=== PATIENT | male | born 1980 | race Caucasian/White ===

== ENCOUNTER 2017-04-06 05:22 | Day surgery (SDC) | payer OTHER, BC ==
[2017-03-25 13:17] VITALS: BMI 25.0
--- NOTE | 2017-03-25 14:22 | DIAGNOSTIC IMAGING REPORT ---
CHEST PREADMISSION(PA/LAT) CLINICAL HISTORY: Preoperative evaluation. COMPARISON STUDY: No previous studies for comparison. FINDINGS: Incidental note is made of a healed fracture of the midshaft of the right clavicle. Lung volumes are normal. No pneumothorax or pleural effusion is present. There is suspected biapical scarring. Pulmonary vascularity is normal. Cardiomediastinal silhouette is normal. IMPRESSION: No acute cardiopulmonary findings. Electronically signed by: Roel Moody M.D. 03/25/2017 2:21 PM Dictated Date/Time: 03/25/2017 2:20 PM
[2017-03-25 14:45] LABS: BASO % 0.8 %; BASO ABS # 0.08 K/uL (0-0.2); COMPLETE YES; HEMATOCRIT 42.4 % (42-52); IG% 0.1 %; LYMPH % 30.1 %; MEAN CORPUSCULAR HEMOGLOBIN 32.8 pg (25-34); MEAN CORPUSCULAR HGB CONC 35.6 g/dl (32-36); MEAN PLATELET VOLUME 10.3 fL (7.4-10.4); MONO % 6.9 %; NEUT % 58.1 %; PLATELET COUNT 277 K/uL (130-400); RED BLOOD COUNT 4.61 M/uL (4.7-6.1)
[2017-03-25 14:54] LABS: BUN/CREATININE RATIO 13.2 (10-20); CALCIUM 9.3 mg/dl (8.5-10.1); CREATININE 0.98 mg/dl (0.60-1.40); POTASSIUM 4.2 mmol/L (3.5-5.1)
[2017-03-25 15:06] LABS: URINE APPEARANCE CLEAR (CLEAR); URINE BILIRUBIN NEG (NEG); URINE COLOR YELLOW; URINE NITRITE NEG (NEG); URINE PH 7.5 (4.5-7.5); URINE SPECIFIC GRAVITY 1.021 (1.000-1.030); UROBILINOGEN NEG (NEG)
[2017-03-25 15:16] LABS: MANUAL MICROSCOPIC REQUIRED? NO; REVIEW REQ? NO
[~2017-04-06] VITALS: Ht 185.4 cm; Wt 88.9 kg
[2017-04-06 05:51] VITALS: BP 154/90; PULSE 95; TEMP 36.6; O2SAT 99; Ht 185.4 cm; Wt 88.9 kg
[2017-04-06] MEDS ORDERED: LACTATED RINGER'S 1000ML 1,000 ML IV SCH (06:00)
[2017-04-06] MEDS ORDERED: CEFAZOLIN 2000 MG/60 ML D5W IV SCH (06:00)
[2017-04-06] MEDS ORDERED: LIDOCAINE HCL 2% 2 ML VIAL (20MG/ML) ONE (06:46)
[2017-04-06] MEDS ORDERED: MIDAZOLAM HCL 1 MG/ML 2ML VIAL ONE (06:46)
[2017-04-06] MEDS ORDERED: FENTANYL CITRATE INJ 50 MCG/1 ML 2 ML VIAL ONE ×3 (06:47→08:34)
[2017-04-06] MEDS ORDERED: ONDANSETRON INJ 2 MG/ML 2 ML VIAL ONE ×2 (06:47→07:34)
[2017-04-06] MEDS ORDERED: PROPOFOL IV EMULSION 10 MG/ML 20 ML VIAL IV ONE ×2 (06:47→07:42)
[2017-04-06] MEDS ORDERED: CONRAY 30% 150ML BOTTLE ONE (07:01)
--- NOTE | 2017-04-06 07:11 | History & Physical Bridge Note ---
H&P Re-Evaluation Bridge Note: I have examined the patient, reviewed the History & Physical and in the interval since the performance of the History & Physical I have noted the following changes of clinical significance: No changes noted
[2017-04-06] MEDS ORDERED: DEXAMETHASONE SOD INJ 4 MG/ML VIAL ONE (07:34)
--- NOTE | 2017-04-06 08:08 | DIAGNOSTIC IMAGING REPORT ---
Radiology KUB CLINICAL HISTORY: 36 years-old Male presenting with RT LASER/LITHOTRIPSY/STENT. TECHNIQUE: 2 fluoroscopic spot image(s) obtained as part of an intraoperative procedure. COMPARISON: CT from 02/19/2017. FINDINGS/IMPRESSION: There has been interval placement of a right ureteral stent. Please see surgical report for further details. Fluoroscopy dosage (mGy): Not available. Fluoroscopy time: 1 minute 2 seconds. Number of fluoroscopic spot images: 2. Electronically signed by: Dinh Mariee M.D. 04/06/2017 8:07 AM Dictated Date/Time: 04/06/2017 8:06 AM
--- NOTE | 2017-04-06 08:15 | [facility] Operative Report ---
Operative Report Operative Date Apr 06, 2017. Pre-Operative Diagnosis Right ureteral stone Post-Operative Diagnosis Right ureteral stone; right kidney stone Procedure(s) Performed cystoscopy; right Ureteroscopy; laser lithotripsy; retrograde pyelogram; and placement of right ureteral stent Surgeon Dr. Ochoa [employer] Strategist Surgeon(s) none Estimated Blood Loss 0mL Findings Ureter clear of stone. Approx 5 mm stone in right mid pole. Specimens none per surgeon Drains 6x26 Right Anesthesia General Complication(s) None Disposition Recovery Room / PACU Indications Long conversation of risks and benefits. Patient agreeable and consented Description of Procedure Patient was consented and brought back to the operating room. Patient was placed under anesthesia and into the dorsal lithotomy position. A time out was completed. A 30degree Cystoscope was placed into the bladder and the entire bladder was examined. The UO's were identified. The right was cannulized with a catheter and a retrograde pyelogram was completed. A wire was then placed, followed by a second safety wire. A flexible ureteroscope was then placed over one of the wires and the entire ureter was examined. No evidence of stone throughtout ureter. The scope then explored the entire renal pelvis. A stone was appreciated in the mid pole and was pulverized to dust and small fragments with a laser. The entire pelvis examined, the scope was slowly removed once again visualizing the entire ureter. The saftey wire remained in place. With the wire in place, a 6 x 26 Double J stent was placed after back loading the wire through the cystoscope. It was confirmed with fluoroscopy. With the stent in place, the bladder was emptied. The scope was removed. The patient was cleaned, aroused from anesthesia, and transferred to the pacu in stable condition having tolerated the procedure well with no complications. I was present and participated in all aspects of the procedure. The patient will be monitored in the PACU until transferred. I attest to the content of the Intraoperative Record and any orders documented therein. Any exceptions are noted below.
[2017-04-06] MEDS ORDERED: PHEN-775 PO (08:16)
[2017-04-06] MEDS ORDERED: OXYC7.5T65 PO (08:16)
[2017-04-06] MEDS ORDERED: CEPH500C2 PO (08:16)
--- NOTE | 2017-04-06 08:18 | Discharge Instructions ---
Discharge Instructions Date of Service Apr 06, 2017. Admission Reason for Admission: Stones Discharge Discharge Diagnosis / Problem: Stone Discharge Goals Goal(s): Decrease discomfort, Improve function Activity Recommendations Activity Limitations: resume your previous activity Shower/Bathe: no limitations . Instructions / Follow-Up Instructions / Follow-Up Monitor for pelvic pain and fevers. May have discomfort and spasms. Call if fever. May have blood in urine. Current Hospital Diet Hospital Diet(s): Regular Diet Discharge Diet Recommended Diet: Regular Diet Procedures Procedures Performed: cystoscopy; right Ureteroscopy; laser lithotripsy; retrograde pyelogram; and placement of right ureteral stent Pending Studies Studies pending at discharge: no Medical Emergencies . Who to Call and When: Medical Emergencies: If at any time you feel your situation is an emergency, please call 911 immediately. . Non-Emergent Contact Non-Emergency issues call your: Primary Care Provider, Urologist Call Non-Emergent contact if: you have a fever, temperature is above 101, temperature is above 101.5, your pain is not controlled, your pain is worsening . . "Provider Documentation" section prepared by Wayne Ochoa,. . VTE Core Measure Inpt VTE Proph given/why not?: Gerri Zhao, SCD's
[2017-04-06] MEDS ORDERED: EpHEDrine SULFATE INJ 50 MG/ML AMP IV PRN (08:30)
[2017-04-06] MEDS ORDERED: ATROPINE SULFATE 0.1 MG/ML 5ML SYR IV PRN (08:30)
[2017-04-06] MEDS ORDERED: HYDROmorphone INJ 1 MG/ML SYR IV PRN (08:30)
[2017-04-06] MEDS ORDERED: PROMETHAZINE HCL INJ 12.5 MG in SODIUM CHLORIDE 0.9% 50ML 50 ML IV PRN (08:30)
[2017-04-06] MEDS ORDERED: ONDANSETRON INJ 2 MG/ML 2 ML VIAL IV PRN (08:30)
[2017-04-06] MEDS ORDERED: FENTANYL CITRATE INJ 50 MCG/1 ML 2 ML VIAL IV PRN (08:30)
--- NOTE | 2017-04-06 09:02 | Anesthesiology Progress Note ---
Anesthesia Post Op Note Date & Time Apr 06, 2017 at 09:01 Vital Signs Pain Intensity: 3 Vital Signs Past 12 Hours Date Time Temp Pulse Resp B/P (MAP) Pulse Ox O2 Delivery O2 Flow Rate FiO2 04/06/17 08:55 77 16 133/78 96 Room Air 04/06/17 08:45 78 16 135/88 95 Room Air 04/06/17 08:35 75 16 139/92 95 Room Air 04/06/17 08:25 83 16 158/93 97 Oxymask 10 04/06/17 08:15 87 16 140/88 99 Oxymask 10 04/06/17 08:09 36.6 92 16 161/116 98 Oxymask 10 04/06/17 05:51 36.6 95 18 154/90 (111) 99 Room Air Notes Mental Status: alert / awake / arousable, participated in evaluation Pt Amnestic to Procedure: Yes Nausea / Vomiting: adequately controlled Pain: adequately controlled Airway Patency, RR, SpO2: stable & adequate BP & HR: stable & adequate Hydration State: stable & adequate Anesthetic Complications: no major complications apparent
[2017-04-06 09:15] VITALS: BP 144/78; PULSE 81; TEMP 36.5; O2SAT 96
[2017-04-06 09:45] VITALS: BP 155/80; PULSE 85; O2SAT 97
[2017-04-06] MEDS ORDERED: NURSING VERBAL MED ORDER ONE (10:00)
[2017-04-06] MEDS ORDERED: MoRPHine SULFATE 2 MG/ML CARP ONE (10:02)
[2017-04-06 10:15] VITALS: BP 148/85; PULSE 78; O2SAT 97
[2017-04-06] MEDS ORDERED: KETOROLAC TROMETHAMINE 30 MG/ML VIAL ONE (10:37)
[2017-04-06 10:45] VITALS: BP 148/85; PULSE 88; O2SAT 96
[2017-04-06] MEDS ORDERED: NURSING DECISION MEDICATION ORDER SCH (10:45)
== END 2017-04-06 11:05 | disposition home or self-care (01) ==
LOC: C.ACU 05:22
PROVIDERS: ATTEND Urology
DX: N20.2 Calculus of kidney with calculus of ureter (principal); F17.200 Nicotine dependence, unspecified, uncomplicated; Z79.899 Other long term (current) drug therapy

== ENCOUNTER → 2017-04-13 | Outpatient (CLI) | payer OTHER, BC ==
[~2017-04-13] MED LIST: CEPH500C2 PO; OXYC7.5T65 PO; PHEN-775 PO
--- NOTE | 2017-04-13 17:14 | DIAGNOSTIC IMAGING REPORT ---
KUB CLINICAL HISTORY: 36 years-old Male presenting with N20.0 Nephrolithiasis. TECHNIQUE: Single supine view of the abdomen was obtained. COMPARISON: CT from 02/19/2017. FINDINGS: Interval placement of a right ureteral stent is in place. Renal calculus at the lower pole the right kidney and a punctate calculus at the upper pole the left kidney noted. No calcification along the course of the right ureteral stent. Multiple pelvic phleboliths noted. Suture material noted in the right lower quadrant. Moderate right-sided stool burden partially obscures the right kidney. Osseous structures normal. IMPRESSION: 1. Interval placement of a right ureteral stent for the previously noted obstructing proximal to mid right ureteral calculus. No current evidence of ureteral calculus. 2. Bilateral nephrolithiasis. Electronically signed by: Dinh Mariee M.D. 04/13/2017 5:13 PM Dictated Date/Time: 04/13/2017 5:10 PM
== END | disposition home or self-care (01) ==
LOC: C.RAD 16:20
PROVIDERS: ATTEND Urology
DX: N20.0 Calculus of kidney (principal)

== ENCOUNTER 2017-05-06 07:39 | Emergency (ER) | payer BC, OTHER ==
[~2017-05-06] VITALS: Ht 185.4 cm; Wt 86.7 kg
[~2017-05-06 07:39] MED LIST changes: -PHEN-775 PO
[2017-05-06 07:41] VITALS: TEMP 36.3; Ht 185.4 cm; Wt 86.7 kg
[2017-05-06] MEDS ORDERED: ONDANSETRON INJ 2 MG/ML 2 ML VIAL IV STA (07:53)
[2017-05-06] MEDS ORDERED: SODIUM CHLORIDE 0.9% 1000ML 1,000 ML IV STA (07:53)
[2017-05-06] MEDS ORDERED: MoRPHine SULFATE 10 MG/ML CARP/VIAL IV STA (07:53)
[2017-05-06] MEDS ORDERED: KETOROLAC TROMETHAMINE 30 MG/ML VIAL IV STA (07:53)
[2017-05-06] MEDS ORDERED: PHEN-939 PO (08:01)
[2017-05-06 08:06] LABS: BASO % 0.8 %; BASO ABS # 0.07 K/uL (0-0.2); COMPLETE YES; EOS % 2.8 %; HEMATOCRIT 41.6 % (42-52); IG% 0.2 %; LYMPH % 27.5 %; LYMPH ABS # 2.49 K/uL (1.2-3.4); MEAN CORPUSCULAR HEMOGLOBIN 31.8 pg (25-34); MEAN CORPUSCULAR HGB CONC 35.3 g/dl (32-36); MEAN PLATELET VOLUME 9.8 fL (7.4-10.4); MONO % 6.5 %; NEUT % 62.2 %; PLATELET COUNT 305 K/uL (130-400); RED BLOOD COUNT 4.62 M/uL (4.7-6.1); WHITE BLOOD COUNT 9.04 K/uL (4.8-10.8)
[2017-05-06 08:22] LABS: URINE APPEARANCE CLEAR (CLEAR); URINE BILIRUBIN NEG (NEG); URINE COLOR DK YELLOW; URINE NITRITE POS (NEG); URINE SPECIFIC GRAVITY 1.018 (1.000-1.030); UROBILINOGEN NEG (NEG); ZZUR CULT IF INDIC CLEAN CATCH NO
[2017-05-06 08:24] LABS: MANUAL MICROSCOPIC REQUIRED? NO; REVIEW REQ? NO
[2017-05-06 08:26] LABS: BUN/CREATININE RATIO 13.1 (10-20); CALCIUM 9.2 mg/dl (8.5-10.1); CREATININE 1.07 mg/dl (0.60-1.40); POTASSIUM 3.9 mmol/L (3.5-5.1)
[2017-05-06] MEDS ORDERED: CIPROFLOXACIN 500 MG TAB PO STA (08:36)
[2017-05-06] MEDS ORDERED: PHEN-876 PO (08:43)
[2017-05-06] MEDS ORDERED: CIPR-255 PO (08:43)
--- NOTE | 2017-05-06 08:44 | EMERGENCY ROOM VISIT NOTE ---
History First contact with patient: 07:45 Chief Complaint: URINARY SYMPTOMS Stated Complaint: EXTREME KIDNEY PAIN Nursing Triage Summary: pt reports has hx of kidney stone had stent placed then when removed dx with uti placed on antibiotics . pt currently on pyridum. reports pain started this am History of Present Illness The patient is a 36 year old male who presents to the Emergency Room with complaints of left flank pain this morning. The patient states over the past few days he's had a little bit of urination irritation. He started taking Pyridium 2 days ago. The patient denies any fever, chest pain, shortness of breath, back pain, hematuria. The patient states that he had a stent placement in the right ureter a month ago to pass a calculus. After they removed the stent after he passed the stone he developed a UTI. He was placed on Cipro for 5 days. He finished the Cipro last week. He was instructed if he gets any kidney pain he is to come to the emergency room. On the prior imaging studies they did not visualize a stone in the left kidney. Review of Systems 10 system review was performed and was negative unless stated otherwise history of present illness. Social History Smoking Status: Current Every Day Smoker Current/Historical Medications Scheduled Phenazopyridine Hcl (Pyridium), Unknown Dose PO TID Physical Exam Vital Signs Date Time Temp Pulse Resp B/P (MAP) Pulse Ox O2 Delivery O2 Flow Rate FiO2 05/06/17 07:41 36.3 90 18 159/96 99 Room Air Physical Exam GENERAL: 36-year-old male appears in no acute distress. MENTAL Status: Alert and oriented 3. MOUTH: Mucosa is moist NECK: Supple, no lymphadenopathy noted. No carotid bruits noted. LUNGS: Clear auscultation without wheezes rales or rhonchi. CARDIAC: Regular rate and rhythm without murmur. Pulses is full and equal throughout. BACK: No CVA tenderness noted. ABDOMEN: Positive bowel sounds all 4 quadrants. Soft, nontender to palpation without organomegaly or masses. EXTREMITIES: No cyanosis or edema noted. Medical Decision & Procedures Laboratory Results 05/06/17 07:55 Red Blood Count 4.62, Mean Corpuscular Volume 90.0, Mean Corpuscular Hemoglobin 31.8, Mean Corpuscular Hemoglobin Concent 35.3, Mean Platelet Volume 9.8, Neutrophils (%) (Auto) 62.2, Lymphocytes (%) (Auto) 27.5, Monocytes (%) (Auto) 6.5, Eosinophils (%) (Auto) 2.8, Basophils (%) (Auto) 0.8, Neutrophils # (Auto) 5.62, Lymphocytes # (Auto) 2.49, Monocytes # (Auto) 0.59, Eosinophils # (Auto) 0.25, Basophils # (Auto) 0.07 05/06/17 07:55 Test 05/06/17 07:50 05/06/17 07:55 Urine Color DK YELLOW Urine Appearance CLEAR (CLEAR) Urine pH 8.0 (4.5-7.5) Urine Specific [place] 1.018 (1.000-1.030) Urine Protein NEG (NEG) Urine Glucose (UA) NEG (NEG) Urine Ketones NEG (NEG) Urine Occult Blood 2+ (NEG) Urine Nitrite POS (NEG) Urine Bilirubin NEG (NEG) Urine Urobilinogen NEG (NEG) Urine Leukocyte Esterase SMALL (NEG) Urine WBC (Auto) 5-10 /hpf (0-5) Urine RBC (Auto) 10-30 /hpf (0-4) Urine Hyaline Casts (Auto) 1-5 /lpf (0-5) Urine Epithelial Cells (Auto) 5-10 /lpf (0-5) Urine Bacteria (Auto) NEG (NEG) White Blood Count 9.04 K/uL (4.8-10.8) Red Blood Count 4.62 M/uL (4.7-6.1) Hemoglobin 14.7 g/dL (14.0-18.0) Hematocrit 41.6 % (42-52) Mean Corpuscular Volume 90.0 fL (80-100) Mean Corpuscular Hemoglobin 31.8 pg (25-34) Mean Corpuscular Hemoglobin Concent 35.3 g/dl (32-36) Platelet Count 305 K/uL (130-400) Mean Platelet Volume 9.8 fL (7.4-10.4) Neutrophils (%) (Auto) 62.2 % Lymphocytes (%) (Auto) 27.5 % Monocytes (%) (Auto) 6.5 % Eosinophils (%) (Auto) 2.8 % Basophils (%) (Auto) 0.8 % Neutrophils # (Auto) 5.62 K/uL (1.4-6.5) Lymphocytes # (Auto) 2.49 K/uL (1.2-3.4) Monocytes # (Auto) 0.59 K/uL (0.11-0.59) Eosinophils # (Auto) 0.25 K/uL (0-0.5) Basophils # (Auto) 0.07 K/uL (0-0.2) RDW Standard Deviation 39.1 fL (36.4-46.3) RDW Coefficient of Variation 12.0 % (11.5-14.5) Immature Granulocyte % (Auto) 0.2 % Immature Granulocyte # (Auto) 0.02 K/uL (0.00-0.02) Anion Gap 7.0 mmol/L (3-11) Est Creatinine Clear Calc Drug Dose 109.9 ml/min Estimated GFR () 104.4 Estimated GFR (Non- 90.1 BUN/Creatinine Ratio 13.1 (10-20) Calcium Level 9.2 mg/dl (8.5-10.1) Medications Administered Medications (Trade) Dose Ordered Sig/Priyanka Route Start Time Stop Time Status Last Admin Dose Admin Sodium Chloride 1,000 ml @ 999 mls/hr Q1H1M STAT IV 05/06/17 07:53 05/06/17 08:53 05/06/17 08:13 999 MLS/HR Ketorolac Tromethamine (Toradol Inj) 30 mg NOW STAT IV 05/06/17 07:53 05/06/17 07:55 DC 05/06/17 08:14 30 MG ED Course The patient was evaluated. The patient's EMR medication list were reviewed. IV access was obtained. The patient was given 1 L normal saline. The patient was given Toradol 30 mg IV for pain. CBC and differential, renal profile, urinalysis was ordered. Labs were reviewed and were unremarkable. White count was normal. The patient's urine showed positive leukocytes positive nitrates and positive blood. This is consistent with UTI. Urine will be sent for culture. The patient was informed of the findings. He was given Cipro 500 mg while in the emergency room. The patient was discharged home in stable condition. Medical Decision Differential diagnosis include UTI, pyelonephritis, ureteral calculi, renal colic [place] Drug Monitoring Program Search Results: patient reviewed within database Medication Reconcilliation Current Medication List: was personally reviewed by me Blood Pressure Screening Patient's blood pressure: Elevated blood pressure Blood pressure disposition: Elevated BP felt to be situational Impression Primary Impression: Urinary tract infection Departure Information Dispostion Home / Self-Care Condition GOOD Prescriptions Ciprofloxacin Hcl (CIPRO) 500 Mg Tab 500 MG PO BID for 10 Days, #20 TAB Prov: Ernestine Bob PA-C 05/06/17 Phenazopyridine HCl (Pyridium) 200 Mg Tab 200 MG PO TID for 2 Days, #6 TAB Prov: Ernestine Bob PA-C 05/06/17 Referrals No Doctor, Assigned (PCP) Forms HOME CARE DOCUMENTATION FORM, IMPORTANT VISIT INFORMATION Patient Instructions [facility], UTI Additional Instructions Drink a lot of water. Ibuprofen 600 mg every 6 hours with food for pain if needed.. Take Pyridium as directed the remainder of today and tomorrow. This will turn her urine orange. Take Cipro as prescribed. If you develop any severe pains, uncontrolled nausea vomiting, high fevers, return to ER immediately Problem Qualifiers Primary Impression: Urinary tract infection Urinary tract infection type: acute cystitis Hematuria presence: with hematuria Qualified Codes: N30.01 - Acute cystitis with hematuria
[2017-05-06 09:01] VITALS: BP 145/87; PULSE 86; O2SAT 97
== END 2017-05-06 09:04 | disposition home or self-care (01) ==
LOC: C.EDB 07:41 → C.EDA 09:04
DX: N39.0 Urinary tract infection, site not specified (principal); F17.200 Nicotine dependence, unspecified, uncomplicated

== ENCOUNTER → 2017-05-17 | Outpatient (CLI) | payer OTHER ==
[~2017-05-17] MED LIST changes: -CEPH500C2 PO; +CIPR-255 PO; -OXYC7.5T65 PO; +PHEN-939 PO
--- NOTE | 2017-05-17 15:05 | DIAGNOSTIC IMAGING REPORT ---
ULTRASOUND KIDNEYS AND BLADDER CLINICAL HISTORY: Nephrolithiasis. COMPARISON STUDY: Abdominal CT dated 02/19/2017. TECHNIQUE: Real-time, grayscale, and color flow sonography of the kidneys and bladder is performed. Images are reviewed in the transverse and longitudinal planes. FINDINGS: Kidneys: The kidneys are normal in size and echotexture. The right kidney measures 11.5 x 6.4 x 5.6 cm and the left kidney measures 10.7 x 5.7 x 6.0 cm. There is no hydronephrosis. No shadowing renal calculi are identified. There is no sonographic evidence of contour deforming renal mass lesion. No perinephric fluid is identified. Bladder: The bladder is decompressed and not well evaluated. Ureteral jets were not seen. IMPRESSION: 1. The kidneys are normal in size and without hydronephrosis. 2. No renal calculi were identified by ultrasound. The small stones seen by CT were not apparent by ultrasound. 3. The bladder was decompressed and not well assessed. Electronically signed by: Cayetano Crowe M.D. 05/17/2017 3:04 PM Dictated Date/Time: 05/17/2017 3:03 PM
--- NOTE | 2017-05-17 15:35 | DIAGNOSTIC IMAGING REPORT ---
KUB CLINICAL HISTORY: Nephrolithiasis. FINDINGS: An AP supine abdominal radiograph is compared to study dated 04/13/2017 and correlated with abdominal CT dated 02/19/2017. A right ureteral stent has been removed from previous. A 3 mm nonobstructing calculi projects over the lower pole of the right kidney. No calcifications are clearly seen projecting over the left kidney or along the course of the ureters. Small pelvic phleboliths are observed. Suture material is noted in the right lower quadrant. There is a nonobstructed abdominal bowel gas pattern. The bony structures appear intact. IMPRESSION: 1. A right ureteral stent has been removed from previous. 2. A small nonobstructing right renal calculus is noted. 3. No left renal calculi are clearly seen. Electronically signed by: Cayetano Crowe M.D. 05/17/2017 3:34 PM Dictated Date/Time: 05/17/2017 3:33 PM
== END | disposition home or self-care (01) ==
LOC: C.ULTR 14:39
PROVIDERS: ATTEND Urology
DX: N20.0 Calculus of kidney (principal)

== ENCOUNTER → 2017-08-24 | Outpatient (CLI) | payer OTHER ==
--- NOTE | 2017-08-24 11:24 | DIAGNOSTIC IMAGING REPORT ---
(RENAL)RETROPERITON COMP HISTORY: Pain. Nephrocalcinosis. R30.0 [id number] COMPARISON: 05/17/2017 FINDINGS: Right kidney: Maximum dimension 11.1 cm. No evidence for hydronephrosis. Normal corticomedullary differentiation and cortical thickness. Several punctate foci of increased echogenicity Left kidney: Maximum dimension 11.0 cm. No evidence for hydronephrosis. Normal corticomedullary differentiation and cortical thickness. Several punctate foci of increased echogenicity Bladder: No bladder wall thickening. The bilateral ureteral jets were identified. IMPRESSION: 1. Possible bilateral punctate nonobstructing nephrocalcinosis. 2. Study is otherwise negative. 3. No evidence for hydronephrosis. The above report was generated using voice recognition software. It may contain grammatical, syntax or spelling errors. Electronically signed by: Doron Bob M.D. 08/24/2017 11:23 AM Dictated Date/Time: 08/24/2017 11:21 AM
--- NOTE | 2017-08-24 11:25 | DIAGNOSTIC IMAGING REPORT ---
KUB CLINICAL HISTORY: R30.0 [id number] pain. Hematuria. COMPARISON STUDY: 05/17/2017 FINDINGS: Unchanged calcification lower pole right kidney. No new or additional calcifications. Renal and psoas shadows are otherwise are unremarkable. Several unchanged pelvic vascular calcifications. IMPRESSION: Unchanged small lower pole right renal calcification. No new or interval change as compared to the prior study. The above report was generated using voice recognition software. It may contain grammatical, syntax or spelling errors. Electronically signed by: Doron Bob M.D. 08/24/2017 11:24 AM Dictated Date/Time: 08/24/2017 11:23 AM
== END | disposition home or self-care (01) ==
LOC: C.ULTR 10:46
PROVIDERS: ATTEND Urology
DX: R30.0 Dysuria (principal); N28.89 Other specified disorders of kidney and ureter